=== PATIENT | male | born 1940 | race Caucasian/White ===

== ENCOUNTER 2022-12-26 13:09 | Outpatient (RCR) | payer MEDICARE, SELFPAY | END 2023-11-24 13:35 | disposition home or self-care (01) | LOC: HO.WCC 13:09 | PROVIDERS: PCP Internal Medicine; Visit Provider Surgery | DX: E11.622 Type 2 diabetes mellitus with other skin ulcer (principal); I87.312 Chronic venous hypertension (idiopathic) with ulcer of left lower extremity; L97.822 Non-pressure chronic ulcer of other part of left lower leg with fat layer exposed; L21.9 Seborrheic dermatitis, unspecified; Z79.899 Other long term (current) drug therapy | CPT/HCPCS: 11042; 11045; 97597; 97598; 99212; 99213; 99214 ==